=== PATIENT | female | born 1945 | race Hispanic/Latino ===

== ENCOUNTER 2021-12-10 09:37 | Day surgery (SDC) | payer OTHER ==
[~2021-12-10] VITALS: Ht 160 cm; Wt 55.3 kg
[2021-12-10] VITALS (13 sets, daily range): BP systolic 105–132; BP diastolic 55–71
[~2021-12-10 09:37] MED LIST: TELM80TA10 PO; [UNRECOGNIZED DRUG - CODE] PO
[2021-12-10] MEDS ORDERED: IOHEXOL-350 75 ML VIAL IV ONE (10:16)
[2021-12-10 11:25] LABS: CREATININE 0.7 mg/dL (0.5-1.5); POTASSIUM 3.5 mmol/L (3.5-5.1)
[2021-12-10] MEDS ORDERED: SUCCINYLCHOLINE 200MG/10ML SYR ONE (11:37)
[2021-12-10] MEDS ORDERED: ROCURONIUM 10MG/1ML SYR 10 MG/ML ML ONE (11:37)
[2021-12-10] MEDS ORDERED: PROPOFOL 10 MG/ML 20ML VIAL IV ONE (11:37)
[2021-12-10] MEDS ORDERED: ONDANSETRON 4MG INJ ONE (11:37)
[2021-12-10 11:38] LABS: ALBUMIN 3.1 g/dL (3.5-5.0); TOTAL PROTEIN, SERUM 6.9 g/dL (6.0-8.3)
[2021-12-10] MEDS ORDERED: FENTANYL CITRATE PF 50 MCG/1 ML 2ML VIAL ONE ×2 (11:38→12:20)
[2021-12-10] MEDS ORDERED: EPHEDRINE SULFATE 50 MG/ML AMPULE ONE (11:54)
[2021-12-10] MEDS ORDERED: PHENYLEPHRINE HCL 10 MG/ML 1ML VIAL IV ONE (12:20)
[2021-12-10] MEDS ORDERED: LEVOFLOXACIN 500 MG/D5W 100 ML 100 ML ONE (12:47)
[2021-12-10] MEDS ORDERED: NEOSTIGMINE 5MG/5ML SYR IV ONE (13:33)
[2021-12-10] MEDS ORDERED: GLYCOPYRROLATE 1 MG/5 ML SYRINGE ONE (13:33)
== END 2021-12-10 14:35 | disposition home or self-care (01) ==
LOC: ENDO 09:37 → DAH 09:37 → ENDO 14:35
PROVIDERS: ATTEND Internal Medicine
DX: R93.3 Abnormal findings on diagnostic imaging of other parts of digestive tract (principal); Z20.822 Contact with and (suspected) exposure to COVID-19; C25.0 Malignant neoplasm of head of pancreas; K83.1 Obstruction of bile duct; R63.4 Abnormal weight loss; R94.5 Abnormal results of liver function studies; K82.4 Cholesterolosis of gallbladder; K86.89 Other specified diseases of pancreas; I10 Essential (primary) hypertension; Z90.710 Acquired absence of both cervix and uterus; Z79.899 Other long term (current) drug therapy
CPT/HCPCS: 87426; 43274; 80053; 36415; 88173 ×2; 88305; 88307; 88342 ×2; 74328; 43238; 93005; J3010 ×2; J0330; J3490 ×2; J2710; J1956; J2704; J2405; J2370; Q9967; A4649; A4620; C1769 ×2; A4215 ×3; A4223; A4657; A7002; A4222; A4221; A4663; J7030; A4606; C1773; C2625; 74330